=== PATIENT | male | born 1950 | race Caucasian/White ===

== ENCOUNTER 2019-07-10 07:03 | Day surgery (SDC) | payer MEDICARE, OTHER ==
[~2019-07-10] VITALS: Ht 180.3 cm; Wt 97.0 kg
[~2019-07-10 07:03] MED LIST: ASPIRIN E.C. 8181 MG PO; B-121000 MCG PO; BETAPACE 120MG120 MG PO; CELEBREX 1100 MG/CAP PO; CEPHALEXIN500 M1 PO; COLESTID 1GM1 G PO; CRESTOR20 MG PO; ERGOCALCIFER50000 IU PO; FISH OIL 1000MG1 CAP PO; FLONASE NASAL S16 GM NS; GLUCOPHAGE1000 MG PO; HCTZ 25MG TAB25 MG PO; HYDRODIURIL50 MG PO; JANUMXR1000-50 PO; K-DUR20 MEQ PO; LANTUS100 U/ML SC; LASIX 20MG TABL20 MG PO; LYRICA 100MG C100 M1 PO; MULTI VITAMINS1 TAB PO; NORVASC 10MG10 MG PO; NOVOLOG 100U100 U/M1 SQ; OMEGA-3 FISH1000 MG PO; PRINIVIL40 MG PO; PROTONIX 40MG T40 MG PO; ROBAXIN 50500 MG/TAB PO; RT ADVAIR HFA 2312 G IH; SPIRIVA RESPIMAT4 GM IH; TOPROL XL100 MG PO; TRIAMCINOLONE A15 GM TP; TYLENOL 325MG325 MG PO; VITAMIN D 50,1.25 MG PO; ZOCOR 40MG40 MG PO; ZOLOFT 50MG50 MG PO; ZYRTEC 10MG10 MG PO; dextromethorphan PO
[2019-07-10 08:04] LABS: HEMATOCRIT 45.5 % (42.0-52.0); HEMOGLOBIN 14.7 g/dl (13.5-18.0); MEAN CELL VOLUME 79 fl (80.0-100.0); MEAN CORPUSCULAR HEMOGLOBIN 26 pg (27.0-31.0); MEAN CORPUSCULAR HGB CONC 32 g/dl (33.0-37.0); MEAN PLATELET VOLUME 11.2 fl (7.4-10.4); PLATELET COUNT 278 K/mm3 (130-400); RED BLOOD COUNT 5.73 M/mm3 (4.20-5.60); REDCELL DISTRIBUTION WIDTH-CV 15.8 % (11.5-14.5)
[2019-07-10 08:10] LABS: CALCIUM 9.8 mg/dL (8.4-10.2); CREATININE, serum 0.78 (0.66-1.25)
[2019-07-10 08:14] LABS: PROTHROMBIN TIME 10.8 SECONDS (9.7-12.8)
[2019-07-10 08:16] LABS: PARTIAL THROMBOPLASTIN TIME 41.8 SECONDS (26.0-37.0)
[2019-07-10] MEDS ORDERED: BETAPACE 120MG120 MG PO ×2 (08:28→10:04)
[2019-07-10] MEDS ORDERED: K-DUR 10 MEQ T10 MEQ PO (08:30)
[2019-07-10] MEDS ORDERED: CRESTOR20 MG PO (08:31)
[2019-07-10] MEDS ORDERED: JANUMXR1000-50 PO (08:35)
[2019-07-10] MEDS ORDERED: CYMBALTA 30MG30 MG PO (08:38)
[2019-07-10] MEDS ORDERED: JARDIANCE10 PO (08:40)
[2019-07-10 08:41] LABS: THYROID STIMULATING HORMONE 1.33 uIU/mL (0.465-4.680)
[2019-07-10] MEDS ORDERED: OPTIVE SENSITI0.4 ML OP (08:41)
[2019-07-10] MEDS ORDERED: PROAIR HFA0.09 MG/AC IH (08:46)
[2019-07-10 08:49] VITALS: BP 121/72; PULSE 62; TEMP 98.2
--- NOTE | 2019-07-10 09:00 | NUR ---
Pt to procedure,report to Ej Thompson.
[2019-07-10 10:05] VITALS: BP 116/66; PULSE 63
--- NOTE | 2019-07-10 10:05 | NUR ---
pt returned from procedure.Observed alert and orientated x 3,respirations even and unlabored.Report from Ej Thompson.
[2019-07-10 10:10] VITALS: BP 116/69; PULSE 65
[2019-07-10 10:25] VITALS: BP 131/75; PULSE 62
[2019-07-10 10:45] VITALS: BP 122/71; PULSE 65
[2019-07-10 10:55] VITALS: BP 132/72; PULSE 63
--- NOTE | 2019-07-10 11:15 | NUR ---
Discharge instructions given to pt.pt verbalizes understanding.INT removed,catheter tip intact.Pt escorted out via wheelchair by this nurse.
== END 2019-07-10 12:42 | disposition home or self-care (01) ==
LOC: COL.CAR 07:03
PROVIDERS: Internal Medicine Cardiovascular Disease
DX: I42.9 Cardiomyopathy, unspecified (principal); I47.2 Ventricular tachycardia; I48.0 Paroxysmal atrial fibrillation; E11.9 Type 2 diabetes mellitus without complications; I11.0 Hypertensive heart disease with heart failure; I50.9 Heart failure, unspecified; J44.9 Chronic obstructive pulmonary disease, unspecified; G47.33 Obstructive sleep apnea (adult) (pediatric); K21.9 Gastro-esophageal reflux disease without esophagitis; M19.041 Primary osteoarthritis, right hand; M19.042 Primary osteoarthritis, left hand; Z79.82 Long term (current) use of aspirin; Z79.51 Long term (current) use of inhaled steroids; Z79.4 Long term (current) use of insulin; Z87.891 Personal history of nicotine dependence; Z95.0 Presence of cardiac pacemaker
CPT/HCPCS: J2704; J7030

== ENCOUNTER 2020-01-13 07:18 | Day surgery (SDC) | payer MEDICARE, OTHER ==
[2020-01-13] VITALS (86 sets, daily range): BP systolic 107–131; BP diastolic 64–78; PULSE 63–73; TEMP 98.7; O2SAT 90–98
[~2020-01-13] VITALS: Ht 180.3 cm; Wt 100.4 kg
[~2020-01-13 07:18] MED LIST changes: +CYMBALTA 30MG30 MG PO; +JARDIANCE10 PO; +K-DUR 10 MEQ T10 MEQ PO; +OPTIVE SENSITI0.4 ML OP; +PROAIR HFA0.09 MG/AC IH
[2020-01-13 08:36] LABS: HEMATOCRIT 44.5 % (42.0-52.0); HEMOGLOBIN 14.2 g/dl (13.5-18.0); MEAN CELL VOLUME 80 fl (80.0-100.0); MEAN CORPUSCULAR HEMOGLOBIN 26 pg (27.0-31.0); MEAN CORPUSCULAR HGB CONC 32 g/dl (33.0-37.0); PLATELET COUNT 234 K/mm3 (130-400); RED BLOOD COUNT 5.57 M/mm3 (4.20-5.60); REDCELL DISTRIBUTION WIDTH-CV 17.2 % (11.5-14.5)
[2020-01-13 08:39] LABS: PROTHROMBIN TIME 10.9 SECONDS (9.7-12.8)
[2020-01-13 08:42] LABS: PARTIAL THROMBOPLASTIN TIME 29.1 SECONDS (26.0-37.0)
[2020-01-13 08:44] LABS: CALCIUM 9.4 mg/dL (8.4-10.2); CREATININE, serum 0.83 (0.66-1.25); POTASSIUM 3.6 mmol/L (3.4-5.0)
[2020-01-13] MEDS ORDERED: MAG-OX 400400 MG/TAB PO (08:53)
[2020-01-13] MEDS ORDERED: COREG 6.256.25 MG/TA PO ×2 (08:54→10:07)
[2020-01-13] MEDS ORDERED: CYMBALTA 30MG30 MG PO (08:54)
[2020-01-13] MEDS ORDERED: BETAPACE 120MG120 MG PO (08:55)
[2020-01-13] MEDS ORDERED: K-TAB20 PO (08:55)
[2020-01-13] MEDS ORDERED: JARDIANCE10 PO (08:56)
[2020-01-13] MEDS ORDERED: DUO-KAPS1 CAP PO (08:57)
[2020-01-13] MEDS ORDERED: RT ADVAIR HFA 2312 G IH (08:58)
[2020-01-13] MEDS ORDERED: PROVENTIL0.09 MG/A1 IH (08:58)
[2020-01-13] MEDS ORDERED: JANUMXR1000-50 PO (08:59)
[2020-01-13] MEDS ORDERED: COLESTID 1GM1 G PO (09:00)
[2020-01-13] MEDS ORDERED: FLONASEALLERGY NS (09:01)
[2020-01-13] MEDS ORDERED: B-121000 MCG PO (09:03)
[2020-01-13] MEDS ORDERED: LANTUS SOLOS100 U/ML SQ (09:03)
[2020-01-13] MEDS ORDERED: LASIX 20MG TABL20 MG PO (09:03)
[2020-01-13] MEDS ORDERED: PROTONIX 40MG T40 MG PO (09:04)
[2020-01-13] MEDS ORDERED: CELEBREX 1100 MG/CAP PO (09:04)
[2020-01-13] MEDS ORDERED: ZESTRIL40 MG PO (09:05)
[2020-01-13] MEDS ORDERED: ASPIRIN 81M81 MG/TA2 PO (09:06)
[2020-01-13] MEDS ORDERED: NORVASC 10MG10 MG PO (09:06)
[2020-01-13] MEDS ORDERED: EPA FISH OIL1 SGL PO (09:07)
--- NOTE | 2020-01-13 09:15 | NUR ---
SEE MEREJOSH FOR ALL MEDICATION ADMINISTRATION TIMES, INTRA AND POST SEDATION ASSESSMENTS
--- NOTE | 2020-01-13 14:30 | NUR ---
Discharge instructions give to pt.pt verbalizes understanding.Right radial covered with gauze and coban observed clean,dry,intact and soft to touch.Right groin observed clen,dry,intact.Soft to Touch.INt removed,catheter tip intact.Pt escorted out via wheelchair by this nurse.
== END 2020-01-13 14:42 | disposition home or self-care (01) ==
LOC: COL.CAR 07:18
PROVIDERS: Internal Medicine Cardiovascular Disease
DX: I42.9 Cardiomyopathy, unspecified (principal); I27.20 Pulmonary hypertension, unspecified; Z79.82 Long term (current) use of aspirin; Z79.899 Other long term (current) drug therapy; Z79.4 Long term (current) use of insulin
CPT/HCPCS: J1644; J2250; J3010; Q9967